=== PATIENT | female | born 1955 | race Caucasian/White ===

== ENCOUNTER 2016-09-30 15:09 | Observation (INO) ==
[2016-09-30] MEDS ORDERED: *HR* Morphine 2 MG/ML SYRINGE IVP PRN (16:07)
[2016-09-30] MEDS ORDERED: Naloxone 0.4 MG/ML INJ IVP PRN (16:07)
--- NOTE | 2016-09-30 16:17 | Urology History & Physical ---
Date of Encounter: 09/30/16 Time of Encounter: 16:17 Assessment and Plan (1) Ureteral stone with hydronephrosis Current Visit: Yes Status: Acute I strongly suspect that the stone is still present. Patient requires hospital admission because of severe pain. proceed with CT scan, IV hydration, analgesics, labs. We'll likely proceed with stone extraction tomorrow if the ureteral stone is still present History of Present Illness Chief complaint: flank pain HPI: Ms. Ventura is a 60 year old female 7 mm mid ureteral stone last month. surgery canceled bc of insurance. pain now severe again. ER visit last night. patient states "I can't stand it anymore " Past Med Surg Social Fam HX - Past Medical History Medical history: kidney stones Psychiatric history: no psych history - Social History Smoking Status: Former smoker Smokeless Tobacco Status: No Alcohol use: none Drug use: none Medications and Allergies Ciprofloxacin [Cipro] 500 mg PO BID #10 tablet 09/29/16 [Rx] Ondansetron ODT [Zofran ODT] 4 mg SL Q6HR #15 tab.rapdis 09/29/16 [Rx] OxyCODONE/APAP 5/325 [Percocet 5/325 MG] 1 each PO Q6HR PRN #12 tablet 09/29/16 [Rx] Allergies Penicillins Adverse Reaction (Verified 09/29/16 01:39) Hives Review of Systems - Constitutional fatigue, no fever(s), no malaise - EENT Nose, mouth and throat: no dizziness - Cardiovascular no chest pain - Respiratory no cough - Gastrointestinal abdominal pain, nausea, vomiting - Genitourinary Genitourinary: flank pain - Musculoskeletal back pain - Integumentary no lesions - Neurological no confusion - Psychiatric no anxiety - Hematologic/Lymphatic no easy bleeding Exam - General physical appearance Present: well developed, moderate pain - Eyes Present: PERRL - ENT Present: normal nares - Neck Present: no masses - Respiratory Present: normal respiratory effort - Cardiovascular Cardiovascular exam IM: RRR - Abdomen Abdomen: Present: soft - Integumentary Present: no rash - Neurologic Present: normal coordination. Absent: disoriented, confused - Musculoskeletal Present: normal gait (CVA tenderness) Urology Results - Labs All other labs normal.
[2016-09-30] MEDS: Ondansetron 4 MG/2 ML VIAL IVP PRN (17:02)
[2016-09-30] MEDS: 0.9 % Sodium Chloride 1,000 ML IVC SCH (17:02)
[2016-09-30] MEDS: *HR* HYDROmorphone (PF) 1 MG/ML SYRINGE IVP PRN ×2 (17:02→20:39)
[2016-09-30 17:12] LABS: Basophils # 0.1 K/mcL (0.0-0.2); Basophils % 0.4 %; Eosinophils # 0.1 K/mcL (0.0-0.6); Eosinophils % 0.5 %; Hematocrit 38.1 % (35.3-44.9); Hemoglobin 12.1 g/dL (11.5-15.4); Immature Granulocytes % 0.3 % (0-4); Lymphocytes # 2.7 K/mcL (0.6-4.6); Lymphocytes % 21.7 %; Mean Corpuscular HGB Conc 31.8 g/dL (31.6-35.5); Mean Corpuscular Hemoglobin 27.6 pg (28.0-33.3); Mean Corpuscular Volume 86.8 fL (83.0-100.0); Mean Platelet Volume 10.1 fL (9.4-12.4); Neutrophils # 8.5 K/mcL (1.6-8.9); Platelet Count 302 K/mcL (140-400); Red Blood Count 4.39 M/mcL (3.82-4.97); Red Cell Distribution Width 13.3 % (11.5-14.5); Segmented Neutrophils % 69.1 %
[2016-09-30 17:28] LABS: Calcium 9.7 mg/dL (8.6-10.8)
[2016-09-30] MEDS: Sulfamethoxazole/Trimeth DS 1 EACH TABLET PO SCH (20:38)
[2016-09-30] MEDS: *HR* Promethazine 25 MG/ML VIAL IVP PRN (20:39)
[2016-10-01] MEDS: 0.9 % Sodium Chloride 1,000 ML IVC SCH ×2 (02:05→09:52)
[2016-10-01] MEDS: *HR* HYDROmorphone (PF) 1 MG/ML SYRINGE IVP PRN ×4 (02:40→15:41)
[2016-10-01] MEDS: Ondansetron 4 MG/2 ML VIAL IVP PRN (02:40)
[2016-10-01] MEDS: *HR* Promethazine 25 MG/ML VIAL IVP PRN (05:56)
--- NOTE | 2016-10-01 06:39 | Urology Progress Note ---
Date of Encounter: 10/01/16 Time of Encounter: 06:38 - Assessment and Plan (1) Ureteral stone with hydronephrosis Current Visit: Yes Status: Acute Assessment and plan: ct scan confirms 9 mm distal stone with hydronephrosis. proceed with stone extraction today. Progress Note Subjective: feels better, still having pain Objective Initial Vital Signs Temp Pulse Resp BP Pulse Ox 98.0 F 61 18 155/84 98 09/30/16 16:34 09/30/16 16:34 09/30/16 16:34 09/30/16 16:34 09/30/16 16:34 - General physical appearance Present: well developed, no distress - Labs 09/30/16 16:53 09/30/16 16:53 Diabetes panel 09/30/16 Range/Units 16:53 Sodium 142 (136-145) mEq/L Potassium 4.0 (3.5-4.5) mEq/L Chloride 105 (98-109) mEq/L Carbon Dioxide 28 (19-29) mEq/L BUN 19 (7-20) mg/dL Creatinine 1.70 H D (0.57-1.11) mg/dL Glucose 95 (70-99) mg/dL Calcium 9.7 (8.6-10.8) mg/dL Calcium panel 09/30/16 Range/Units 16:53 Calcium 9.7 (8.6-10.8) mg/dL Pituitary panel 09/30/16 Range/Units 16:53 Sodium 142 (136-145) mEq/L Potassium 4.0 (3.5-4.5) mEq/L Chloride 105 (98-109) mEq/L Carbon Dioxide 28 (19-29) mEq/L BUN 19 (7-20) mg/dL Creatinine 1.70 H D (0.57-1.11) mg/dL Glucose 95 (70-99) mg/dL Calcium 9.7 (8.6-10.8) mg/dL Adrenal panel 09/30/16 Range/Units 16:53 Sodium 142 (136-145) mEq/L Potassium 4.0 (3.5-4.5) mEq/L Chloride 105 (98-109) mEq/L Carbon Dioxide 28 (19-29) mEq/L BUN 19 (7-20) mg/dL Creatinine 1.70 H D (0.57-1.11) mg/dL Glucose 95 (70-99) mg/dL Calcium 9.7 (8.6-10.8) mg/dL Consult Discharge Plan - Plan Referrals: NO,PCP [Primary Care Provider] -
[2016-10-01] MEDS: Sulfamethoxazole/Trimeth DS 1 EACH TABLET PO SCH (09:52)
--- NOTE | 2016-10-01 15:56 | Anesthesia Evaluation PreOp ---
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: Denies Any Significant HX Other Medical History: Renal (stone, hydronephrosis) Anesthesia History: No Prior Anesthetic Complications, Past Anesthesia Alcohol Use: none Drug use: none Medications and Allergies No Known Home Drugs 10/01/16 [History] Allergies Penicillins Adverse Reaction (Verified 10/01/16 09:09) Hives - Meds/Allergy Pre-op Review Medications Reviewed: Yes Allergies Reviewed: Yes Beta Blockers on Current Med List: No Anesthesia Results - Labs 09/30/16 16:53 09/30/16 16:53 Anesthesia Exam Vital Signs/O2 Sat/Glucose, Most Current Temp Pulse Resp BP Pulse Ox 10/01/16 15:12 98.3 F 71 14 142/81 94 L Height: 1.6 Weight: 92 NPO (# of Hours): >8 - HEENT Pupil (Motor): Pupils equal - 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
--- NOTE | 2016-10-01 16:30 | Discharge Summary ---
Date of Encounter: 10/01/16 Time of Encounter: 16:27 - Discharge Diagnosis (1) Ureteral stone with hydronephrosis Priority: Primary Status: Resolved - Discharge Medications Prescriptions: Oxycodone HCl/Acetaminophen [Percocet 5-325 mg Tablet] 1 each PO Q4H PRN #20 tablet PRN Reason: Pain Phenazopyridine [Pyridium] 200 mg PO TID PRN #20 tablet PRN Reason: burning with urination Home Medications: Oxycodone HCl/Acetaminophen [Percocet 5-325 mg Tablet] 1 each PO Q4H PRN #20 tablet 10/01/16 [Rx] Phenazopyridine [Pyridium] 200 mg PO TID PRN #20 tablet 10/01/16 [Rx] Allergies/Adverse Reactions: Allergies Penicillins Adverse Reaction (Verified 10/01/16 09:09) Hives Labs on day of discharge: Labs from last 24 hours 09/30/16 09/30/16 16:53 16:53 WBC 12.3 H RBC 4.39 Hgb 12.1 Hct 38.1 MCV 86.8 MCH 27.6 L MCHC 31.8 RDW 13.3 Plt Count 302 MPV 10.1 Immature Gran % 0.3 Seg Neutrophils % 69.1 Lymphocytes % 21.7 Monocytes % 8.0 Eosinophils % 0.5 Basophils % 0.4 Neutrophils # 8.5 Lymphocytes # 2.7 Monocytes # 1.0 Eosinophils # 0.1 Basophils # 0.1 Sodium 142 Potassium 4.0 Chloride 105 Carbon Dioxide 28 BUN 19 Creatinine 1.70 H D Est GFR ( Amer) 37 L Est GFR (Non-Af Amer) 31 L BUN/Creatinine Ratio 11 Glucose 95 Calculated Osmolality 296 Calcium 9.7 - Impressions ITS Impressions Abdomen/Pelvis CT 09/30/16 16:12 IMPRESSION: 1. 9 mm calculus within the distal right ureter, just proximal to the right UVJ, with mild to moderate right hydronephrosis and mild right perinephric stranding. 2. Nonobstructing left nephrolithiasis. 3. Findings suggestive of diffuse hepatic steatosis. 4. Colonic diverticulosis, without diverticulitis. D/ / 09/30/2016 20:30:14 Virgilio Andres MD / rafaelrtjean marie Interpreting Provider: Virgilio Andres MD Date of admission: 09/30/16 15:16 Primary care physician: PCP [place] Discharging clinician: Michael Rivera Anticipated date of discharge: 10/01/16 - Patient Status Disposition: Home, Self-Care Condition: Good Functional capacity at discharge: independent ambulation Overall status at discharge: patient is progressing back to baseline - Discharge Instructions Follow Up With: NO,PCP [Primary Care Provider] - Michael Rivera MD [Partnered Physician] - (next week. will need cystoscopy and stent removal in the office. ) Additional Instructions: expect stent symptoms including urgency, frequency, burning and blood in the urine. this is normal. call if excessive. stent will be removed in the office next week. call if fever over 101 or signs infection. - Diet and Activity Activity: increase activity as tolerated Diet: advance to your usual diet - Hospital Course Hospital course: Ms. Ventura is a 60 year old female s/p stone extraction 60 yo admitted for an obstructing 9 mm stone. s/p stone extraction. plan for discharge when pain controlled after the procedure. / - Time Spent with Patient Total time spent providing and/or coordinating discharge services: Less than 30 minutes Exam Initial Vital Signs Temp Pulse Resp BP Pulse Ox 98.0 F 61 18 155/84 98 09/30/16 16:34 09/30/16 16:34 09/30/16 16:34 09/30/16 16:34 09/30/16 16:34 - General physical appearance Present: well developed, no distress
--- NOTE | 2016-10-01 16:40 | Operative Note ---
Date of procedure: 10/01/16 Pre-op diagnosis: right distal ureteral stone Post-op diagnosis: same Procedure: right ureteroscopic stone extraction with holium laser right rpg right JJ stent. Anesthesia: GETA Surgeon: Michael Rivera Estimated blood loss (cc): 0 Specimen: stone Condition: stable Disposition: PACU Procedure in Detail: PROCEDURE IN DETAIL: Patient was taken back to the operating room, positioned supine on the operating table. Anesthesia was applied without complication. They were moved into dorsal lithotomy. Careful attention was maintained to cushion all pressure points for patient's safety. They were prepped and draped in sterile fashion. Time-out was performed with the proper patient and procedure. A 21-Prydeinig rigid cystoscope was inserted into the bladder without difficulty. Systematic examination of bladder revealed no abnormalities. The ureteral orifice was cannulated using a 5-Prydeinig ureteral Catheter and a retrograde pyelogram was performed using Isovue. A filling defect was identified which corresponded to the stone. At that point, a zip wire was placed through the 5-Prydeinig and confirmed in the renal pelvis with fluoroscopy. . A semi-rigid ureteroscope was carefully inserted into the bladder and guided into the ureteral oriface. At that point, the stone was encountered and I felt that it required fragmentation for safe extraction. A 200 micron holmium laser fiber on a setting of 8 and 800 was used to fragment the stone into multiple pieces. The fragments were individually basketed out of the ureter with a 1.9 tipless basket. All stone in the ureter was removed. A 4.8 x 26 ureteral stent was placed over the zip wire under fluoroscopy without complication. The bladder was drained along with the stone fragments. They were collected and sent for stone analysis. no string was left attached.
[2016-10-01] MEDS ORDERED: *HR* Propofol 200 MG/20 ML VIAL IVP ONE ×2 (16:56)
[2016-10-01] MEDS ORDERED: *HR* Midazolam HCl 2 MG/2 ML VIAL ONE (16:56)
[2016-10-01] MEDS ORDERED: *HR* FentaNYL (PF) 100 MCG/2 ML VIAL ONE (16:56)
[2016-10-01] MEDS ORDERED: Ondansetron 4 MG/2 ML VIAL IVP PRN ×2 (17:02→18:44)
[2016-10-01] MEDS ORDERED: *HR* HYDROmorphone (PF) 1 MG/ML SYRINGE IVP PRN ×2 (17:02→18:44)
[2016-10-01] MEDS ORDERED: *HR* Promethazine 25 MG/ML VIAL IVP PRN ×2 (17:02→18:44)
[2016-10-01] MEDS ORDERED: Ondansetron 4 MG/2 ML VIAL ONE (17:07)
--- NOTE | 2016-10-01 17:47 | Anesthesia Evaluation Post Op ---
Date of Encounter: 10/01/16 Time of Encounter: 17:46 - Vital Signs Vital Signs: Vital Signs/O2 Sat/Glucose, Most Current Temp Pulse Resp BP Pulse Ox 10/01/16 17:35 61 14 119/70 96 10/01/16 17:25 61 14 121/65 100 10/01/16 17:15 98.1 F 63 10 128/74 100 10/01/16 15:12 98.3 F 71 14 142/81 94 L - Lungs Lungs: Clear Ascult./Percussion - Airway Airway: Non-obstructed - Cardiovascular Regular Rate, Baseline Rhythm - Mental Status Mental Status: Alert & Oriented, Answers Appropriately - Pain Pain Scale: 2 Pain Scale used: Numeric (1 - 10) - Nausea Vomiting Nausea Vomiting: Not Present - Hydration Hydration: Tolerates oral liquids, Able to void - Discharge PostOp Status: Transfer Patient to floor
[2016-10-01] MEDS ORDERED: *HR* Morphine 2 MG/ML SYRINGE IVP PRN (18:44)
[2016-10-01] MEDS ORDERED: 0.9 % Sodium Chloride 1,000 ML IVC SCH (18:44)
[2016-10-01] MEDS ORDERED: Naloxone 0.4 MG/ML INJ IVP PRN (18:44)
[2016-10-01] MEDS ORDERED: *HR* OxyCODONE/APAP 5/325 TABLET PO PRN (18:44)
[2016-10-01 20:49] VITALS: BP 121/77
[2016-10-01] MEDS ORDERED: Sulfamethoxazole/Trimeth DS 1 EACH TABLET PO SCH (21:00)
== END 2016-10-01 23:46 | disposition home or self-care (01) ==
LOC: 3BNU
PROVIDERS: ADMIT Urology; ATTEND Urology